=== PATIENT | male | born 1950 | race Caucasian/White ===

== ENCOUNTER → 2024-08-17 07:12 | Outpatient (REF) | payer MEDICARE, OTHER, SELFPAY | LOC: HWRCS 07:12 | PROVIDERS: ATTENDING PHYSICIAN Emergency Medicine | DX: R94.31 Abnormal electrocardiogram [ECG] [EKG] (principal) | CPT/HCPCS: 93306 ==

== ENCOUNTER → 2024-08-27 08:13 | Outpatient (REF) | payer MEDICARE, OTHER, SELFPAY | LOC: RAD 08:13 | PROVIDERS: ATTENDING PHYSICIAN Emergency Medicine | DX: K76.89 Other specified diseases of liver (principal) | CPT/HCPCS: 74177; Q9967 ==